=== PATIENT | male | born 1965 | race Native Hawaiian/Other Pacific Islander ===

== ENCOUNTER 2016-09-26 07:57 | Emergency (ER) | payer MEDICAID ==
[2016-09-26 08:04] VITALS: BP 151/89; PULSE 90; RESP 18; TEMP 97.9; O2SAT 94
--- NOTE | 2016-09-26 08:20 | EDPHY ---
H & P Stated Complaint: l lower back pain/l sciatic pain/sees pcp/is out of vicodin HPI/ROS: CHIEF COMPLAINT: "I have a herniated lumbar disc" HISTORY OF PRESENT ILLNESS: The patient is a 51 y/o male with chronic back pain complaining of the same back pain and requesting refills of his narcotic medication. He has a history of 2 herniated discs confirmed on MRI within the last year, per his report. He states he normally takes 7.5mg Vicodin and says he ran out 2 days ago. His doctor "told me he can only write a prescription every 30 days because it's a narcotic". He also takes Meloxicam daily. His pain is located primarily along his left lower back and extends into his hip, but does not radiate into his leg. His pain is usually worse at night. He denies weakness, paresthesias, urinary or bowel incontinence/retention. REVIEW OF SYSTEMS: A ten point review of systems was performed and is negative with the exception of the items mentioned in the HPI. - Personal History Current Tetanus/Diphtheria Vaccine: Yes Tetanus Vaccine Date: 2010 - Medical/Surgical History PMH: PMH: 1. Chronic back pain - 2 herniated discs 2. "mental issues" 3. Hepatitis C Hx Asthma: No Hx Chronic Respiratory Disease: No Hx Diabetes: No Hx Cardiac Disease: No Hx Renal Disease: No Hx Cirrhosis: No Hx Alcoholism: Yes Hx HIV/AIDS: No Hx Splenectomy or Spleen Trauma: No Other PMH: PMH- DEPRESSION, PTSD, SUICIDE ATTEMPTS X2, HEP C, antisocial personality d/o. PSH- NERVE DAMAGE LFA, hx staph infx, herniated disc, chronic pain, hx hand fx, hx cutting. back pain - Social History Smoking Status: Never smoked Additional Social History: Nonsmoker. . Denies alcohol or drug use. Unemployed. Followed by [facility] - Physical Exam Exam: General Appearance: Alert. Vital signs reviewed. Blood pressure 151/89. Eyes: Pupils equal and round, no conjunctival injection, no discharge. Anicteric. ENT, Mouth: Mucous membranes are moist, no oropharyngeal erythema or edema. Neck: No lymphadenopathy, supple. Respiratory: Lungs are clear to auscultation; no wheezes, rales, or rhonchi. Cardiovascular: Regular rate and rhythm; no murmur, rub, or gallop. Gastrointestinal: Abdomen is soft and nontender, no masses or organomegaly. Skin: Warm and dry, no rashes on exposed skin, normal color. Back: Nontender to palpation over the thoracolumbar spine. No CVAT. Extremities: No lower extremity edema, no calf tenderness or swelling. Neurological: Alert and oriented. Moving all four extremities easily and equally. Strength is 5 over 5 bilaterally in both legs with testing of all major motor groups. Sensation is intact to light touch over both lower extremities. Deep tendon reflexes are 1+ in the ankles and knees bilaterally. Gait is normal. . Psychiatric: Normal affect. Constitutional: Initial Vital Signs Temperature (C) 36.6 C 09/26/16 08:01 Heart Rate 90 09/26/16 08:01 Respiratory Rate 18 09/26/16 08:01 Blood Pressure 151/89 H 09/26/16 08:01 O2 Sat (%) 94 09/26/16 08:01 O2 Delivery Mode Room Air Allergies/Adverse Reactions: No Known Allergies Allergy (Verified 09/26/16 07:58) Home Medications: Medication Instructions Recorded Albuterol [Ventolin Hfa Inhaler] 2 puffs IH Q4 PRN #1 mdi 08/14/15 GABAPENTIN 1,200 mg PO TID #56 tablet 08/14/15 TRIHEXYPHENIDYL HCL 5 mg PO DAILY #7 08/14/15 TRIHEXYPHENIDYL HCL 10 mg PO HS #14 08/14/15 buPROPion SR [Wellbutrin 150mg SR 150 mg PO BID #14 tab 08/14/15 (*)] Vicodin 5-300 mg Tablet 09/26/16 Medical Decision Making ED Course/Re-evaluation: This is a 51 y/o male with chronic back pain and continuous narcotic use complaining of chronic back pain and requesting narcotic refills. His neuro exam is normal. I reviewed his history on the [facility]PD[facility]: 2 weeks ago his PA prescribed 120mg 7.5mg/325 hydrocodone/acetaminophen. He has also had a prescription for tramadol recently. I told him this and he became quite agitated and began yelling at me. I offered lidocaine injections/patch, which he refused. He asked where the next closest ER is so he could go there instead. I again offered lidocaine injection and recommended OTC lidocaine patches until he is able to see his PA. He continued to be agitated and yelled at me. He walked out of the ED without assistance without receiving discharge instructions. It is my impression that he is seeking opiates. I find no evidence of radiculopathy, do not suspect epidural infection or other sinister process that would cause back pain. Departure - Departure Disposition: Home, Routine, Self-Care Clinical Impression: Chronic back pain Qualifiers: Back pain location: low back pain Back pain laterality: left Sciatica presence : without sciatica Qualified Code(s): M54.5 - Low back pain; G89.29 - Other chronic pain Condition: Good Instructions: Lidocaine Patch (On the skin), Chronic Back Pain (ED) Additional Instructions: 1. Follow up with your primary care provider this week for pain management of your chronic pain. 2. Be aware the ED does not prescribe narcotics for chronic pain. 3. I recommend trying lidocaine patches available [id number] and applying to painful areas. Referrals: Asha Duke, PAC [Primary Care Provider] - As per Instructions Report Scribed for: Alethea Bishop Report Scribed by: Jes Madrigal Date of Report: 09/26/16 Time of Report: 08:40 Physician Review and Approval Statement: 09/26/16 08:20 Portions of this note were transcribed by the biomedical field service engineer. I, Dr. Alethea Bishop, personally performed the history, physical exam, and medical decision- making; and confirmed the accuracy of the information in the transcribed note.
== END 2016-09-26 09:03 | disposition home or self-care (01) ==
DX: M54.5 Low back pain (principal); G89.29 Other chronic pain

== ENCOUNTER 2017-06-30 19:03 | Emergency (ER) | payer MEDICAID ==
--- NOTE | 2017-06-30 19:23 | EDPHY ---
H & P Source: Patient - Personal History Tetanus Vaccine Date: 2010 - Medical/Surgical History Hx Asthma: No Hx Chronic Respiratory Disease: No Hx Diabetes: No Hx Cardiac Disease: No Hx Renal Disease: No Hx Cirrhosis: No Hx Alcoholism: Yes Hx HIV/AIDS: No Hx Splenectomy or Spleen Trauma: No Other PMH: PMH- DEPRESSION, PTSD, SUICIDE ATTEMPTS X2, HEP C, antisocial personality d/o. PSH- NERVE DAMAGE LFA, hx staph infx, herniated disc, chronic pain, hx hand fx, hx cutting. back pain - Social History Smoking Status: Never smoked Time Seen by Provider: 06/30/17 19:06 HPI/ROS: CHIEF COMPLAINT: M1 psychiatric hold HISTORY OF PRESENT ILLNESS: The patient is brought to the emergency department on M1 psychiatric hold for suicidal ideation, aggressive behavior and tangential thoughts. The patient reportedly has a history of schizophrenia and has been off of his medications. He also has a history of chronic pain and prior suicide attempt. The patient reports that he is not had his Neurontin, Percocet and he believes Zyprexa for the past several days. The patient reports she has been experiencing hallucinations. He has been having thoughts of suicide secondary to his chronic pain. REVIEW OF SYSTEMS: A comprehensive 10 point review of systems is otherwise negative aside from elements mentioned in the history of present illness. (Augie Peteresn) - Physical Exam Exam: General Appearance: Alert, no distress Eyes: Pupils equal and round no pallor or injection ENT, Mouth: Mucous membranes moist Respiratory: There are no retractions, lungs are clear to auscultation Cardiovascular: Regular rate and rhythm Gastrointestinal: Abdomen is soft and nontender, no masses, bowel sounds normal Neurological: A&O, normal motor function, normal sensory exam, normal cranial nerves Skin: Multiple tattoos, evidence of old prior self-inflicted lacerations Musculoskeletal: Neck is supple nontender Extremities: symmetrical, full range of motion Psychiatric: Agitated, endorses suicidal and homicidal ideation (Augie Petersen) Constitutional: Initial Vital Signs Temperature (C) 37 C 06/30/17 19:28 Heart Rate 119 H 06/30/17 19:28 Respiratory Rate 20 06/30/17 19:28 Blood Pressure 129/80 H 06/30/17 19:28 O2 Sat (%) 94 06/30/17 19:28 O2 Delivery Mode Room Air Allergies/Adverse Reactions: No Known Allergies Allergy (Verified 09/26/16 07:58) Home Medications: Medication Instructions Recorded Albuterol [Ventolin Hfa Inhaler] 2 puffs IH Q4 PRN #1 mdi 08/14/15 GABAPENTIN 1,200 mg PO TID #56 tablet 08/14/15 TRIHEXYPHENIDYL HCL 5 mg PO DAILY #7 08/14/15 TRIHEXYPHENIDYL HCL 10 mg PO HS #14 08/14/15 buPROPion SR [Wellbutrin 150mg SR 150 mg PO BID #14 tab 08/14/15 (*)] Vicodin 5-300 mg Tablet 09/26/16 Medical Decision Making ED Course/Re-evaluation: The patient presents the ED on an M1 psychiatric hold. The patient was given Zyprexa. He has been medically cleared in the emergency department. The patient will be turned over to Dr. Hester at 11pm pending psychiatric disposition. (Augie Petersen) 5:50 a.m.- The patient has been stable during my shift. He did require a dose of Ativan and Zyprexa because of agitation which resolved. Urine toxicology was positive for methamphetamines which delays his psychiatric evaluation. I anticipate at 7 :00 a.m. The case will be signed out to the oncoming provider Dr. Matute. (Nuha Hester) 1500: Patient is signed out to me at change of shift by Dr. Matute. Patient is awaiting evaluation by Psychiatric Services. Psychiatric Services evaluated the patient. They felt he was at his baseline. He does have a loosen a shins at baseline. The patient's white came in the emergency department. She visit with the patient. She feels comfortable taking him home. She feels he is at his baseline as well. Patient was given warnings. Dr. Salazar is aware. (Evelyn Yang) Differential Diagnosis: Differential diagnosis considered includes schizophrenia, psychosis, substance abuse (Augie Petersen) Other Provider: Care assumed at 7:00 a.m., schizophrenia and methamphetamine, pending psychiatric evaluation. Usual medications prescribed at 1330: Wellbutrin 150mg bid, neurontin 1200mg po tid, percocet 2 tabs po bid, zyprexa 10mg po daily. Patient having psychiatric evaluation. Signed out to Dr. Sovndal at 1500. (Wilfredo Matute) - Data Points Laboratory Results: Laboratory Results 06/30/17 20:02 06/30/17 20:02 Medications Given: Gabapentin (Neurontin) 1,200 mg PO TID ABHINAV Stop: 12/28/17 15:59 Last Admin: 07/01/17 13:46 Dose: 1,200 mg Discontinued Medications Bupropion HCl (Wellbutrin Sr) 150 mg PO EDNOW ONE Stop: 06/30/17 20:13 Last Admin: 06/30/17 21:18 Dose: 150 mg Bupropion HCl (Wellbutrin) 150 mg PO EDNOW ONE Stop: 07/01/17 13:48 Last Admin: 07/01/17 13:55 Dose: 150 mg Gabapentin (Neurontin) 300 mg PO EDNOW ONE Stop: 06/30/17 19:29 Last Admin: 06/30/17 20:00 Dose: 300 mg Lorazepam (Ativan) 1 mg PO EDNOW ONE Stop: 06/30/17 23:40 Last Admin: 06/30/17 23:39 Dose: 1 mg Olanzapine (Zyprexa Zydis) 10 mg PO EDNOW ONE Stop: 06/30/17 19:28 Last Admin: 06/30/17 20:00 Dose: 10 mg Olanzapine (Olanzapine) 10 mg PO DAILY ONE Stop: 07/01/17 13:33 Last Admin: 07/01/17 13:44 Dose: 10 mg Oxycodone/Acetaminophen (Percocet 5/325) 2 tab PO EDNOW ONE Stop: 06/30/17 19:29 Last Admin: 06/30/17 20:00 Dose: 2 tab Oxycodone/Acetaminophen (Percocet 5/325) 2 tab PO BID ONE Stop: 07/01/17 13:33 Last Admin: 07/01/17 13:46 Dose: 2 tab Departure - Departure Disposition: Home, Routine, Self-Care Clinical Impression: Methamphetamine use Schizophrenia Qualifiers: Schizophrenia type: unspecified Qualified Code(s): F20.9 - Schizophrenia, unspecified Condition: Good Instructions: Schizophrenia (ED), Methamphetamine Abuse (ED) Additional Instructions: Return with worsening symptoms or any other concerns. Referrals: [facility],. [Clinic] - 1-2 days without fail
[2017-06-30] MEDS ORDERED: OLANZapine DISINTEGR 10 MG TAB PO ONE (19:27)
[2017-06-30] MEDS ORDERED: OXYCODONE/APAP 5/325 TAB PO ONE (19:28)
[2017-06-30] MEDS ORDERED: GABAPENTIN 300 MG CAP PO ONE (19:28)
[2017-06-30] MEDS ORDERED: buPROPion SR 150 MG TAB PO ONE (20:12)
[2017-06-30 20:13] LABS: PLATELET COUNT 263 10^3/uL (150-400)
[2017-06-30 22:57] VITALS: O2SAT 96
[2017-06-30] MEDS ORDERED: OLANZapine DISINTEGR 10 MG TAB ONE ×2 (23:21→23:30)
[2017-06-30] MEDS ORDERED: LORazepam 1 MG TAB ONE ×2 (23:21→23:30)
[2017-06-30] MEDS ORDERED: HALOPERIDOL LACT 5 MG/ML INJ ONE (23:29)
[2017-06-30] MEDS ORDERED: LORazepam 1 MG TAB PO ONE (23:39)
[2017-07-01 07:50] VITALS: TEMP 97.7
[2017-07-01] MEDS ORDERED: OXYCODONE/APAP 5/325 TAB PO ONE (13:32)
[2017-07-01] MEDS ORDERED: OLANZapine 5 MG TAB PO ONE (13:32)
[2017-07-01] MEDS ORDERED: GABAPENTIN 300 MG CAP ONE (13:42)
[2017-07-01] MEDS ORDERED: buPROPion 100 MG TAB PO ONE (13:47)
[2017-07-01] MEDS ORDERED: GABAPENTIN 300 MG CAP PO SCH (16:00)
[2017-07-01 17:16] VITALS: BP 112/67; PULSE 89; RESP 18
[2017-07-01] MEDS ORDERED: buPROPion SR 150 MG TAB PO SCH (21:00)
== END 2017-07-01 19:43 | disposition home or self-care (01) ==
LOC: EDUNIT#
DX: F20.9 Schizophrenia, unspecified (principal); F15.90 Other stimulant use, unspecified, uncomplicated
CPT/HCPCS: 80305; G0480; J1630

== ENCOUNTER 2017-07-19 19:09 | Inpatient (IN) | payer MEDICAID ==
[2017-07-19 20:34] LABS: PLATELET COUNT 248 10^3/uL (150-400)
[2017-07-19] MEDS ORDERED: OLANZapine DISINTEGR 10 MG TAB PO ONE ×2 (21:55→23:26)
[2017-07-19] MEDS ORDERED: buPROPion SR 150 MG TAB PO ONE (22:01)
[2017-07-19] MEDS ORDERED: OXYCODONE/APAP 5/325 TAB PO ONE (22:03)
--- NOTE | 2017-07-19 22:27 | EDPHY ---
H & P Smoking Status: Never smoked Time Seen by Provider: 07/19/17 20:15 HPI/ROS: CHIEF COMPLAINT: Suicidal, homicidal HISTORY OF PRESENT ILLNESS: 51-year-old male with a known history of paranoid schizophrenia presents to the emergency department voluntarily with his feeling suicidal and homicidal. The patient is noncompliant with his Zyprexa. The patient tells me that he will not disclose his suicidal plan. He has had previous suicidal attempts with cutting that has required surgical repair. He admits to using Adderall recreationally. His last use was today. He also admits to smoking marijuana. He denies alcohol. Currently he is complaining of his back pain. He has a history of chronic back pain. He also has a history of recent rotator cuff repair January of 2017. He is requesting Percocet. He states he also has not taken his Wellbutrin today. He denies pain in his chest or difficulty breathing. Denies abdominal pain. Denies headache. REVIEW OF SYSTEMS: Constitutional: No fever, no chills. Eyes: No double or blurry vision. ENT: No sore throat. Respiratory: No cough, no shortness of breath. Cardiac: No chest pain. Gastrointestinal: No abdominal pain, vomiting or diarrhea. Genitourinary: No dysuria. Musculoskeletal: No neck or back pain. Skin: No rashes. Neurological: No headache. (Zaida Cooper) Past Medical/Surgical History: Previous suicide attempts, paranoid schizophrenia, substance abuse, chronic pain (Zaida Cooper) Social History: (Zaida Cooper) Physical Exam: General Appearance: Alert, no distress. Anxious Eyes: Pupils equal and round. Extraocular motions are all intact. ENT: Mouth: Mucous membranes moist. Respiratory: No wheezing, rhonchi, or rales, lungs are clear to auscultation. Cardiovascular: Regular rate and rhythm. Gastrointestinal: Abdomen is soft and nontender, no masses, no rebound or guarding, bowel sounds normal. Neurological: Alert and oriented x 3, cranial nerves II through XII grossly intact Skin: Warm and dry, no rashes. Musculoskeletal: Nontender to palpate along the cervical, thoracic or lumbar spine. Neck is supple. Extremities: Full range of motion and no peripheral edema. Psychiatric: Patient is oriented X 3, there is no agitation. (Zaida Cooper) Constitutional: Initial Vital Signs Temperature (C) 36.6 C 07/19/17 19:50 Heart Rate 125 H 07/19/17 19:50 Respiratory Rate 18 07/19/17 19:50 Blood Pressure 126/99 H 07/19/17 19:50 O2 Sat (%) 94 07/19/17 19:50 O2 Delivery Mode Room Air Allergies/Adverse Reactions: No Known Allergies Allergy (Verified 07/19/17 19:42) Home Medications: Medication Instructions Recorded Albuterol [Ventolin Hfa Inhaler] 2 puffs IH Q4 PRN #1 mdi 08/14/15 Gabapentin [Neurontin 400 MG (*)] 1,200 mg PO TID 07/19/17 Meloxicam 7.5 mg PO BID 07/19/17 OLANZapine [Zyprexa] 10 mg PO HS 07/21/17 buPROPion XL [Wellbutrin Xl] 150 mg PO BID 07/21/17 oxyCODONE HCL/ACETAMINOPHEN 1 - 2 each PO Q6HRS PRN 07/21/17 [Percocet 7.5-325 mg Tablet] Medical Decision Making ED Course/Re-evaluation: 51-year-old male presents to the emergency department voluntarily feeling suicidal and homicidal. He is noncompliant with his medications including Zyprexa. The patient admits that he needs help. He is requesting his medications. He was placed on an M1 hold. The patient admits to using methamphetamines. The urine tox screen was positive for amphetamines. He will be evaluated after 12 hr because of the amphetamines in his system. The patient became increasingly agitated. He was given a total of 20 mg of Zyprexa orally. He was also given his Wellbutrin SR and his Percocet that he takes for chronic pain. The patient declined Haldol. He says that he does not like how it makes him feel the following day. (Zaida Cooper) 0539: Patient resting. No acute events overnight. 0700: Patient signed over to Dr. Gutierrez. Patient still needs eval due to positive for amphetamine. (Andrews Kirby) I assumed care of this patient at 3:00 p.m., change of shift, from Xander Gutierrez. We are awaiting placement. Throughout the course of my shift, the patient remained calm cooperative. He did request his usual medications and was provided with Wellbutrin, Effexor, Zyprexa, gabapentin. Patient has been declined for admission to [address] [place] [address] secondary to a history of aggressive behavior. He is currently being reviewed for placement at [facility]. Patient's care will be assumed by Dr. Antoni Rico, at 11:00 p.m., change of shift. (Angela Dailey) 11:00 a.m. The patient has been evaluated by Mental Health. They would like to admit him for schizophrenia possibly to [address] [place] [address]. 3:00 p.m. Care transferred to Dr. Angela Dailey (Xander Gutierrez) Differential Diagnosis: Depression including noncompliant with medication, functional and major depression, situational depression, medication side effect, drugs and alcohol abuse. (Zaida Cooper) Other Provider: 2300 care assumed by me from Dr. Dailey pending placement. 07/21/17 [address] Faustin pending placement. No issues during my care of this patient overnight. (Daquan Rico) 7:00 a.m.-I assumed care of this patient at shift change. He has a history of schizoaffective disorder and presents with suicidal and homicidal ideation. He has been seen by mental health and is awaiting inpatient disposition. Accepted to . [facility] completed. (Shona Faustin) Care Turn Over: Care will be turned over to Dr. Andrews Kirby (Zaida Cooper) - Data Points Laboratory Results: Laboratory Results 07/19/17 19:50 07/19/17 19:50 Medications Given: Discontinued Medications Amlodipine Besylate (Norvasc) 5 mg PO EDNOW ONE Stop: 07/21/17 10:29 Last Admin: 07/21/17 11:52 Dose: Not Given Bupropion HCl (Wellbutrin Sr) 150 mg PO EDNOW ONE Stop: 07/19/17 22:02 Last Admin: 07/19/17 22:25 Dose: 150 mg Bupropion HCl (Wellbutrin) 150 mg PO EDNOW ONE Stop: 07/20/17 12:23 Last Admin: 07/20/17 12:31 Dose: Not Given Bupropion HCl (Wellbutrin Sr) 150 mg PO EDNOW ONE Stop: 07/20/17 18:46 Last Admin: 07/20/17 19:12 Dose: 150 mg Bupropion HCl (Wellbutrin Sr) 150 mg PO EDNOW ONE Stop: 07/21/17 08:48 Last Admin: 07/21/17 09:07 Dose: 150 mg Gabapentin (Neurontin) 300 mg PO EDNOW ONE Stop: 07/20/17 12:23 Last Admin: 07/20/17 12:31 Dose: Not Given Gabapentin (Neurontin) 300 mg PO EDNOW ONE Stop: 07/20/17 16:46 Last Admin: 07/20/17 16:49 Dose: 300 mg Gabapentin (Neurontin) 300 mg PO EDNOW ONE Stop: 07/20/17 21:19 Last Admin: 07/20/17 21:37 Dose: 300 mg Gabapentin (Neurontin) 300 mg PO EDNOW ONE Stop: 07/21/17 08:48 Last Admin: 07/21/17 09:08 Dose: 300 mg Haloperidol Lactate (Haldol Injection) 10 mg IM EDNOW ONE Stop: 07/19/17 23:12 Last Admin: 07/19/17 23:35 Dose: Not Given Olanzapine (Zyprexa Zydis) 10 mg PO EDNOW ONE Stop: 07/19/17 21:56 Last Admin: 07/19/17 22:10 Dose: 10 mg Olanzapine (Zyprexa Zydis) 10 mg PO EDNOW ONE Stop: 07/19/17 23:27 Last Admin: 07/19/17 23:34 Dose: 10 mg Olanzapine (Zyprexa Zydis) 10 mg PO EDNOW ONE Stop: 07/20/17 11:16 Last Admin: 07/20/17 12:22 Dose: Not Given Olanzapine (Zyprexa Zydis) 10 mg PO EDNOW ONE Stop: 07/20/17 21:18 Last Admin: 07/20/17 21:37 Dose: 10 mg Oxycodone/Acetaminophen (Percocet 5/325) 2 tab PO EDNOW ONE Stop: 07/19/17 22:04 Last Admin: 07/19/17 22:10 Dose: 2 tab Oxycodone/Acetaminophen (Percocet 5/325) 2 tab PO EDNOW ONE Stop: 07/20/17 21:19 Last Admin: 07/20/17 21:37 Dose: 2 tab Oxycodone/Acetaminophen (Percocet 5/325) 2 tab PO EDNOW ONE Stop: 07/21/17 08:47 Last Admin: 07/21/17 09:08 Dose: 2 tab Departure - Departure Disposition: [facility] IP Clinical Impression: Suicidal ideation Schizophrenia Qualifiers: Schizophrenia type: unspecified Qualified Code(s): F20.9 - Schizophrenia, unspecified
[2017-07-19] MEDS ORDERED: HALOPERIDOL LACT 5 MG/ML INJ IM ONE (23:11)
[2017-07-20] MEDS ORDERED: OLANZapine DISINTEGR 10 MG TAB PO ONE ×2 (11:15→21:17)
[2017-07-20] MEDS ORDERED: buPROPion 100 MG TAB PO ONE (12:22)
[2017-07-20] MEDS ORDERED: GABAPENTIN 300 MG CAP PO ONE ×3 (12:22→21:18)
[2017-07-20] MEDS ORDERED: GABAPENTIN 300 MG CAP ONE (12:23)
[2017-07-20] MEDS ORDERED: buPROPion SR 150 MG TAB PO ONE (18:45)
[2017-07-20] MEDS ORDERED: OXYCODONE/APAP 5/325 TAB PO ONE (21:18)
[2017-07-20] MEDS ORDERED: buPROPion 100 MG TAB PO SCH (22:00)
[2017-07-21] MEDS ORDERED: OXYCODONE/APAP 5/325 TAB PO ONE (08:46)
[2017-07-21] MEDS ORDERED: buPROPion SR 150 MG TAB PO ONE (08:47)
[2017-07-21] MEDS ORDERED: GABAPENTIN 300 MG CAP PO ONE (08:47)
[2017-07-21] MEDS ORDERED: amLODIPine BESYLATE 5 MG TAB PO ONE (10:28)
[2017-07-21] MEDS ORDERED: ALBUTEROL 60 PUFFS/8 GM MDI IH PRN (14:55)
[2017-07-21] MEDS ORDERED: MAGNESIUM HYDROXIDE 30 ML UDCUP PO PRN (14:58)
[2017-07-21] MEDS ORDERED: OLANZapine DISINTEGR 10 MG TAB PO PRN (14:58)
[2017-07-21] MEDS ORDERED: ACETAMINOPHEN 325 MG TAB PO PRN (14:58)
[2017-07-21] MEDS ORDERED: MAG HYDROX/AL HYDROX/SIMETH 30 ML UDCUP PO PRN (14:58)
[2017-07-21] MEDS ORDERED: buPROPion XL 150 MG TAB PO ONE (15:00)
[2017-07-21] MEDS: GABAPENTIN 400 MG CAP PO SCH ×2 (15:50→20:47)
[2017-07-21] MEDS: OXYCODONE/APAP 5/325 TAB PO PRN (15:53)
[2017-07-21] MEDS: NICOTINE POLACRILEX 2 MG GUM B PRN ×2 (15:55→21:00)
--- NOTE | 2017-07-21 15:55 | BCON ---
[f rep st] BEHAVIORAL HEALTH CONSULTATION INTERNAL MEDICINE CONSULT DATE OF CONSULTATION: 07/21/2017 REFERRING PHYSICIAN: Alejo Lubin MD REASON FOR REFERRAL: Medical clearance for inpatient behavioral health stay. HISTORY OF PRESENT ILLNESS: This patient came to the emergency department voluntarily with his feeling suicidal and homicidal. He has a history of paranoid schizophrenia and had been noncompliant with Zyprexa. He was evaluated by the mental health team and admitted for further psychiatric care. He currently complains of mouth pain over his right maxillary canine tooth. He otherwise is without any acute complaints, but he wants to be sure that he has been prescribed nicotine gum as well as Percocet. PAST MEDICAL HISTORY: 1. Chronic pain. 2. Schizophrenia. 3. Polysubstance abuse. 4. Laceration of the left arm. PAST SURGICAL HISTORY: He has had surgical repair of a laceration and he has had a rotator cuff surgery. MEDICATIONS: Prior to admission 1. Oxycodone/acetaminophen 1-2 p.o. q.6 hours p.r.n. 2. Meloxicam 7.5 mg p.o. b.i.d. 3. Gabapentin 1200 mg p.o. t.i.d. 4. Albuterol 2 puffs q.4 hours p.r.n. 5. Bupropion XL 150 mg p.o. b.i.d. 6. Olanzapine 10 mg p.o. q.h.s. SOCIAL HISTORY: He is . He lives with his . He is unemployed. He is a tobacco smoker. His urine drug screen was positive for amphetamines and he admitted in the Emergency Department to using methamphetamine. FAMILY HISTORY: Noncontributory. REVIEW OF SYSTEMS: Other than mouth pain a 10-point review of systems was conducted and was negative. PHYSICAL EXAMINATION: VITALS: Blood pressure is 110/79, heart rate is 90, respiratory rate is 14, oxygen saturation is 94% on room air. Temperature is 37.1 degrees centigrade. His weight is 81.6 kg for a body mass index of 28.2. GENERAL: This is a well-nourished, well-developed man with multiple tattoos, napping in bed, easily awakened, dressed in hospital scrubs, cooperative and in no acute distress. HEENT: Extraocular movements are intact. Pupils are equal , round, reactive to light. Mucous membranes are moist. There is a 2 mm papule on the buccal gum above the right maxillary canine which is tender to palpation. He also reports tenderness over the maxillary sinus. Otherwise, mucous membranes are moist and dentition is in good condition. He has an uncrowded airway, Mallampati class 2. NECK: Supple. HEART: Regular rate and rhythm with no murmurs, rubs, or gallops. LUNGS: Clear to auscultation bilaterally. ABDOMEN: Benign. EXTREMITIES: There is no cyanosis, clubbing, or edema. NEUROLOGIC: He is alert and oriented x3. Cranial nerves 2-12 are grossly intact. There is no focal weakness and sensation is intact to light touch. LABORATORY STUDIES: From the emergency department CBC was overall within normal limits. He had a slight increase of absolute neutrophils at 6.53. Serum chemistry revealed normal renal function and electrolytes. His glucose was slightly elevated at 113, but this was likely not fasting. Toxicology screen in the urine was non-negative for amphetamines and marijuana. Toxicology screen in the serum was negative for ethyl alcohol. ASSESSMENT AND RECOMMENDATIONS: 1. Mental health issues pending further evaluation and management per Psychiatry and the mental health team. 2. Mouth pain with erythematous papule in the buccal gum above the right canine. Unclear whether this is odontogenic. However, next step in evaluation would be for him to see a dentist after discharge from inpatient psychiatry. If it were to worsen, or if he were to develop fevers or chills, would consider treatment with antibiotics. However, he did not have an elevated white count on the labs that were drawn 2 days ago. 3. Chronic pain syndrome. In reviewing his medications, I see that Percocet as well as oxycodone have been continued. He also has acetaminophen prescribed and gabapentin. 4. Tobacco dependence syndrome. I encouraged smoking cessation. 5. Polysubstance abuse with a positive urine screen for amphetamines as well as marijuana. He might benefit from specific substance abuse counseling. 6. History of asthma. Continue albuterol on a p.r.n. basis. I see no medical contraindications to this patient's continued stay on the inpatient behavioral health unit or to any psychiatric medications or procedures. Thank you very much for including me in the care of this patient and please do not hesitate to contact me or the hospitalist service should there be need for further medical evaluation. /[id number]
[2017-07-21] MEDS: OLANZapine 10 MG TAB PO SCH (20:47)
[2017-07-21] MEDS: LORazepam 0.5 MG TAB PO PRN (23:45)
[2017-07-22] MEDS: oxyCODONE IR 5 MG TAB PO PRN ×3 (08:01→21:14)
[2017-07-22] MEDS: OXYCODONE/APAP 5/325 TAB PO PRN ×3 (08:02→21:15)
[2017-07-22] MEDS: GABAPENTIN 400 MG CAP PO SCH ×3 (08:04→17:02)
[2017-07-22] MEDS ORDERED: buPROPion XL 150 MG TAB PO SCH (09:00)
[2017-07-22] MEDS: NICOTINE POLACRILEX 2 MG GUM B PRN ×6 (11:04→22:56)
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
[2017-07-22] MEDS: PRAZOSIN HCL 1 MG CAP PO SCH (21:14)
[2017-07-22] MEDS: OLANZapine 10 MG TAB PO SCH (21:14)
[2017-07-22] MEDS: buPROPion XL 150 MG TAB PO SCH (21:14)
[2017-07-23] MEDS: GABAPENTIN 400 MG CAP PO SCH ×3 (07:30→17:19)
[2017-07-23] MEDS: NICOTINE POLACRILEX 2 MG GUM B PRN ×6 (07:30→23:07)
[2017-07-23] MEDS: OXYCODONE/APAP 5/325 TAB PO PRN ×3 (07:30→23:02)
[2017-07-23] MEDS: oxyCODONE IR 5 MG TAB PO PRN ×3 (07:31→23:03)
[2017-07-23] MEDS: buPROPion XL 150 MG TAB PO SCH ×3 (07:31→16:10)
[2017-07-23] MEDS ORDERED: buPROPion SR 150 MG TAB PO SCH (10:45)
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
[2017-07-23] MEDS: PRAZOSIN HCL 1 MG CAP PO SCH (21:17)
[2017-07-23] MEDS: OLANZapine 10 MG TAB PO SCH (21:18)
[2017-07-23] MEDS: LORazepam 0.5 MG TAB PO PRN (23:06)
[2017-07-24 06:52] VITALS: BP 98/67
[2017-07-24] MEDS ORDERED: OLANZapine DISINTEGR 5 MG TAB PO PRN (07:02)
[2017-07-24] MEDS: GABAPENTIN 400 MG CAP PO SCH ×2 (08:19→12:32)
[2017-07-24] MEDS: buPROPion XL 150 MG TAB PO SCH (08:19)
[2017-07-24] MEDS: OXYCODONE/APAP 5/325 TAB PO PRN (08:20)
[2017-07-24] MEDS: oxyCODONE IR 5 MG TAB PO PRN (08:20)
[2017-07-24] MEDS: NICOTINE POLACRILEX 2 MG GUM B PRN ×2 (08:21→12:32)
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
== END 2017-07-24 14:01 | disposition home or self-care (01) | DRG 885 ==
LOC: BBEH 07-21 12:57
PROVIDERS: ADMIT Psychiatry & Neurology Psychiatry; ATTEND Psychiatry & Neurology Psychiatry
DX: F25.1 Schizoaffective disorder, depressive type (principal); F43.12 Post-traumatic stress disorder, chronic; F12.188 Cannabis abuse with other cannabis-induced disorder; F15.14 Other stimulant abuse with stimulant-induced mood disorder; G89.4 Chronic pain syndrome; Z79.891 Long term (current) use of opiate analgesic; K06.9 Disorder of gingiva and edentulous alveolar ridge, unspecified; J45.909 Unspecified asthma, uncomplicated; F17.210 Nicotine dependence, cigarettes, uncomplicated; Z63.0 Problems in relationship with spouse or partner; Z65.3 Problems related to other legal circumstances
CPT/HCPCS: 80305; G0480; J1630

== ENCOUNTER 2017-10-26 09:35 | Inpatient (IN) | payer MEDICAID, OTHER ==
[2017-10-26] MEDS ORDERED: OLANZapine DISINTEGR 10 MG TAB ONE (09:36)
[2017-10-26] MEDS ORDERED: OLANZapine DISINTEGR 5 MG TAB PO ONE (09:37)
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
[2017-10-26 10:01] LABS: PLATELET COUNT 238 10^3/uL (150-400)
[2017-10-26] MEDS ORDERED: HALOPERIDOL 5 MG TAB PO ONE (10:32)
--- NOTE | 2017-10-26 14:54 | ASMTTCLDSP ---
TLC Discharge Disposition Disposition: Answers: Admit Disposition Notes: Notes: Admit 3N Discharge Concerns/Recommendations: Notes: In consultation with [facility] ED physician, Xander Gutierrez MD and on-call ANP, Kyle Moore, both concurred that pt appears to meet 27-65 criteria requiring psychiatric hospitalization as pt appears to be at risk of harm to self/others/gravely disabled due to a mental illness condition. Pt was given (but declined to sign) the 3N prohibited belongings list while in the ED. Was patient given the Answers: Yes Inpatient Behavioral Health Prohibited Belongings List while in the ED? For inpatient [facility] admission, the following psychiatrist agreed to accept patient for admission to Behavioral Health ([facility]): Type of Hold: Answers: M1/72-hour Hold Hold initiated by: Answers: Police Date Signed: 10/26/2017 02:18 PM Electronically Signed By:Tc Perez
[2017-10-26] MEDS ORDERED: LORazepam 0.5 MG TAB PO PRN ×2 (15:47→15:53)
[2017-10-26] MEDS ORDERED: OLANZapine DISINTEGR 10 MG TAB PO PRN (15:47)
[2017-10-26] MEDS ORDERED: ACETAMINOPHEN 325 MG TAB PO PRN (15:47)
[2017-10-26] MEDS ORDERED: MAG HYDROX/AL HYDROX/SIMETH 30 ML UDCUP PO PRN (15:47)
[2017-10-26] MEDS ORDERED: MAGNESIUM HYDROXIDE 30 ML UDCUP PO PRN (15:47)
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
[2017-10-27] MEDS ORDERED: ALBUTEROL 60 PUFFS/8 GM MDI IH PRN (12:17)
[2017-10-27] MEDS ORDERED: OLANZapine DISINTEGR 10 MG TAB PO PRN (12:19)
--- NOTE | 2017-10-27 13:11 | ASMTLCPROG ---
Notes Note: Notes: TLC Evaluation Report had been saved/locked in [place] but did not migrate over to [facility]. IT ticket Incident [id number] requested. Date Signed: 10/27/2017 01:10 PM Electronically Signed By:Tc Perez
[2017-10-27] MEDS: NICOTINE POLACRILEX 2 MG GUM B PRN ×3 (13:12→19:28)
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
[2017-10-27] MEDS: GABAPENTIN 400 MG CAP PO SCH ×2 (13:27→16:14)
[2017-10-27] MEDS: OXYCODONE/APAP 5/325 TAB PO PRN ×2 (13:28→19:29)
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
[2017-10-27] MEDS: buPROPion XL 150 MG TAB PO SCH (16:14)
[2017-10-27] MEDS: OLANZapine 10 MG TAB PO SCH (20:37)
[2017-10-28] MEDS: buPROPion XL 150 MG TAB PO SCH (08:35)
[2017-10-28] MEDS: GABAPENTIN 400 MG CAP PO SCH ×3 (08:35→17:25)
[2017-10-28] MEDS: OXYCODONE/APAP 5/325 TAB PO PRN ×2 (08:42→17:25)
[2017-10-28] MEDS: NICOTINE POLACRILEX 2 MG GUM B PRN ×2 (08:43→11:48)
[2017-10-28] MEDS: buPROPion SR 150 MG TAB PO SCH (13:17)
--- NOTE | 2017-10-28 13:23 | ASMTCMCOM ---
CM Note CM Note Notes: After discussing case with hospital liaison (Gretta); CC sent over referral to [facility]. Date Signed: 10/28/2017 01:22 PM Electronically Signed By:Saúl Sabillon
--- NOTE | 2017-10-28 16:37 | SOAPPROG ---
ENMA Progress Note Assessment/Plan: Assessment: Plan: 10/28/17 16:36 Schizophrenia: Looks much better today. Requests transfer to [place]. Await information from [facility]. CCM. Subjective: Pt seen, discussed with staff. Reports feeling "a lot better." States he needs "buttermaker continuous churn hospitalization." He requests transfer to [facility] "to work on my voices and addictions." I passed this along to CC. O/w reports improvement in intensity of AH's. Objective: Vital Signs Temp Pulse Resp BP Pulse Ox 36.4 C 73 20 102/62 90 L 10/28/17 06:00 10/28/17 06:00 10/28/17 06:00 10/28/17 06:00 10/28/17 06:00 MSE: Calm, coop. Affect is brighter, less irritable. Mood is "pretty good." TP linear. TC reveals ongoing report of AH's. States, "I guess I'm still suicidal. I need help." - Time Spent With Patient Time Spent With Patient: 25" ICD10 Worksheet Patient Problems: Problems Problem Status Onset Schizoaffective psychosis Acute Acute psychosis Acute Chronic back pain Acute History of posttraumatic stress disorder (PTSD) Acute Laceration of arm Acute Psychosis Acute Schizophrenia Acute Suicidal ideation Acute
[2017-10-28] MEDS: OLANZapine 10 MG TAB PO SCH (21:04)
[2017-10-29 06:54] VITALS: BP 100/58
[2017-10-29] MEDS: GABAPENTIN 400 MG CAP PO SCH ×3 (08:31→15:59)
[2017-10-29] MEDS: OXYCODONE/APAP 5/325 TAB PO PRN ×2 (08:32→15:59)
[2017-10-29] MEDS: buPROPion SR 150 MG TAB PO SCH ×2 (08:33→12:53)
--- NOTE | 2017-10-29 11:41 | ASMTBHDC ---
Notes Note: Notes: CC called and spoke with Jo Ann; she requested discharge paperwork including updates on medications and a prescription for medications upon discharge to facility. We discussed possible discharge date middle of next week 11/03/2017. [facility] to provide transportation upon discharge. Jo Ann [address] [address] O# [phone] F# [phone] Date Signed: 10/29/2017 11:39 AM Electronically Signed By:Sadaf Lerma
--- NOTE | 2017-10-29 11:56 | SOAPPROG ---
SOAP Progress Note Assessment/Plan: Assessment: Plan: 10/28/17 16:36 Schizophrenia: Looks much better today. Requests transfer to [place]. Await information from [facility]. CCM. 10/29/17 11:55 Schizophrenia: Continued improvement. CCM. Subjective: Pt seen, discussed with staff. Reports feeling "better." SLept better. AH's have decreased. Compliant with meds. States now that he wants to have a meeting with his . [place] reportedly refused him pending and "administrative review." Pt is aware of this and continues to request admission to that facility. Agreeable to remain in hospital on a voluntary basis at this time. Objective: Vital Signs Temp Pulse Resp BP Pulse Ox 36.3 C 84 16 100/58 L 91 L 10/29/17 06:00 10/29/17 06:00 10/29/17 06:00 10/29/17 06:00 10/29/17 06:00 15" - Time Spent With Patient Time Spent With Patient: 15" ICD10 Worksheet Patient Problems: Problems Problem Status Onset Schizoaffective psychosis Acute Acute psychosis Acute Chronic back pain Acute History of posttraumatic stress disorder (PTSD) Acute Laceration of arm Acute Psychosis Acute Schizophrenia Acute Suicidal ideation Acute
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
--- NOTE | 2017-11-08 10:06 | ASMTTLCEVL ---
TLC Evaluation - Basic Information Evaluation Start Date and 10/26/2017 12:30 PM Time Hospital Status Answers: M1 Hold 72-hr M1 Hold Start Date 10/26/2017 08:24 AM and Time Patient statement Notes: "I've been hearing voices and my mind is racing." Narrative Notes: Pt is a 52 yo, unemployed, male with history of schizophrenia and substance abuse, brought to [facility] ED by [employer] on M1 hold which noted: Responding officer responded to report of respondent being barricaded in room and yelling. Upon contact, respondent continually spoke about people outside on 4th floor ledge (none seen). Respondent was also talking to non-existent person he thought was in his room with him. He did barricade door to feel safe. He stated he is diagnosed paranoid schizophrenic. For his health and well-being he was taken to hospital. Police were called at the hotel as pt was acting erratically, pacing around, and scaring patrons. He was hostile, threatening and being uncooperative. He reported that he has been hearing voices and that his mind is racing. He also reported he feels depressed. He has not been taking his Zyprexa and Neurontin as prescribed. He does report that he has taken his Wellbutrin. He denied any recent recreational drug use. He does take Percocet and that his urinal B positive for opiates for chronic pain. Pt was administered Zyprexa Zydis 10 mg po at 0940 and Haldol 5 mg PO at 1054. Lab results were WNL. Pt was evaluated by [facility] server service assistant on 07/20/17 and is an open client at [facility] under the psychiatric care of Dr. Inocencio Galan. Pt was admitted to [facility] on 07/21/17 for suicidal and homicidal ideation and was discharged on 07/26/17. At that time, pt stated that he had been for two years and that his left him on 07/19/17 and wanted a divorce because of his Adderall abuse. Diagnosis History Notes: Pt has a long history of care with [facility]. He has had numerous incarcerations and history of aggression and violence, especially when acutely psychotic and/or intoxicated. His discharge diagnosis when most recently on was Schizoaffective Disorder, Depressed, Chronic, with Acute Exacerbation; PTSD; Cannabis Use Disorder, Severe; Amphetamine Use Disorder, Severe. Prior suicide attempts Notes: Pt has a history of serious suicide attempt by cutting in 2012. He reported 3 serious attempts in the past. Prior hospitalizations Notes: Pt has a history of inpatient hospitalizations, including [facility] five times. He was hospitalized at [facility] on 07/11/2017 and left AMA. He was admitted to [facility] 3N from 07/21/17 to 07/26/17 and from 08/13/15 to 08/14/15. Treatment Responses Notes: Pt has history of medication non-compliance. History of violence Notes: Pt's most recent incarceration for 25 months for domestic violence. Therapist: None. Psychiatrist: Dr. Galan at [facility] and has [facility] Medicaid [id number]. Medications (name, dosage, route, freq uency) Notes: Current home medications: Percocet 5/325 1 2 tab PO Q6H prn; Wellbutrin 150 mg PO BID at 0900, 1600; Minipress 1 mg PO HS; Olanzapine 10 mg PO HS; Meloxicam 7.5 mg PO BID; Neurontin 1200 mg PO TIC at 0900, 1300, 1800; Albuterol Inhaler HFA 2 puffs IH Q4 PRN. Allergies/Reaction Notes: NKDA. Sleep Notes: Pt reported that his sleep is fine but later stated that he can't typically sleep because he is "seeing things." Appetite Notes: Pt reported that his appetite is fine. Medical/Surgical history Notes: Pt has a reported history of chronic pain and significant for lumbar diskectomy, multiple left shoulder surgeries with chronic pain. Substance use history (frequency, intensity, his tory, duration) Notes: Pt admitted that he had been abusing Adderall prior to 07/21/17. He had been taking it daily and was not sure of the dose. Pt admitted to using marijuana and denied using alcohol and meth. BAL was zero. UDS was negative for all tested substances. Family composition Notes: Pt reported having 3 daughters and 2 step children. He stated that he had been for two years. Need for family Answers: No participation in patient's care Family psychiatric/substance abuse history Notes: None reported. Developmental history Notes: There are no previous [facility] records detailing developmental history. Pt currently non-cooperative, required ED medications, and is not a reliable historian currently. Abuse concerns Answers: None Marital status/children Notes: He had been for two years and that his left him on 07/19/17 and wanted a divorce because of his Adderall abuse. He has 3 daughters and 2 step children. Living situation Notes: Pt previously resided at home in [place] with his and children. He reported also having a [facility] in [facility]. Lately, pt has been staying at the [facility] where [employer] picked up pt today. Sexual history/orientation Notes: Not active. Heterosexual. Peer support/family strengths Notes: Pt denied any social support. Education level/history Notes: Pt reported that he attended some college at [employer] and wanted to be and alcohol counselor. Work history Notes: Pt is unemployed. Notes: None. Legal Notes: Pt has multiple arrests for theft, menacing, assault, many are related to alcohol use. Pt estimates he has spent 17.5 years of his life incarcerated. Currently not on parole or probation. Zoroastrianism/Spiritual Notes: Pt denied any druze or spiritual affiliation that would impact with treatment. Leisure Notes: Pt denied any leisure activities. Collateral Notes: Per prior [facility] records. TLC Evaluation - Mental Status Exam Appearance: Answers: Unclean Unkempt Disheveled Eye Contact: Answers: Avoiding Mood: Answers: Depressed Irritable Labile Affect: Answers: Angry Distracted Fearful Guarded Labile Suspicious Behavior: Answers: Uncooperative Menacing Resistive to Care Restless Sedated Suspicious Speech: Answers: Illogical Coherent Dramatic Loud Pressured Thought Process: Answers: Disorganized Disoriented Distracted Loose Associations Paranoid Insight: Answers: Fair Judgement: Answers: Poor Manic Signs/Symptoms Answers: Impulsivity Irritability Mood Swings Racing Thoughts Depression Answers: Difficulty Concentrating Signs/Symptoms: Diminished Interest Diminished Pleasure Psychomotor Agitation Sad Mood Hallucinations: Answers: Auditory Visual Delusions: Answers: Ideas of Reference Paranoid Ideation Persecution Current Stage of Change Answers: Precontemplation Pt reported to have Answers: No suicidal/self-injuring ideation/behavior? Pt reported to be making Answers: No suicidal/self-injuring threats? Pt reported to have Answers: Yes aggression/assault ideation/behavior? Pt reported to be making Answers: No aggression/assault threats? Pt exhibits inability to Answers: Yes care for self/grave disability? Ideation/behavior is Answers: Yes chronic? Patient has a specific Answers: No plan? Pt has access to means to Answers: No execute the plan? Ideation involves Answers: No serious/lethal intent? Ideation has Answers: Yes delusional/hallucinatory content? History of Answers: Yes suicidal/self-injuring ideation, behavior, or threats? History of serious Answers: No physical harm to self/others while in treatment setting? TLC Evaluation - Suicide/Homicide Risk Suicide Risk Factors: Answers: < 20 or > 40 Years of Age Agitation Alcohol/Heavy Drug Use Anhedonia Cluster "B" D/O or Traits Command Hallucinations Impulsivity Inadequate Social Support Lack of Zoroastrianism Support Lack of Social Support Lack/Loss of Employment Legal Difficulties Prior Suicide Attempt(s) Schizoaffective Disorder Self-Harm Behaviors Serious Health Issue, Pain Single Unstable Living Situation Homicide/violence risk Answers: Character Disorder Males factors: Dealing with Separation Cluster "B" D/O or Traits Command Hallucinations Paranoid Ideation Previous Hx of Violence Current Suicidal Answers: No Ideation? Current Suicidal Ideation Answers: No in the Past 48 Hours? Current Suicidal Ideation Answers: No in the Past Month? Current Suicidal Answers: No Ideation, Worst Ever? Suicide Internal Answers: None Protective Factors: Suicide External Answers: Positive Therapeutic Protective Factors: Relationships Ranking of patient's Answers: Low suicidal risk: Ranking of patient's Answers: Moderate homicidal risk: TLC Evaluation - Wrap-up AXIS I Diagnosis (include DSM-V and ICD-10 codes), must also be entered in [employer], which is the source of truth. Notes: Schizoaffective Disorder, Depressed, Chronic, with Acute Exacerbation PTSD; Cannabis Use Disorder, Severe; Amphetamine Use Disorder, Severe Pt refused/unable to complete BDI/BSS questionnaires. In consultation with [facility] ED physician, Xander Gutierrez MD and on-call ANP, Kyel Moore, both concurred that pt appears to meet 27-65 criteria requiring psychiatric hospitalization as pt appears to be at risk of harm to self/others/gravely disabled due to a mental illness condition. Pt was given (but declined to sign) the 3N prohibited belongings list while in the ED. Evaluation End Date and 10/26/2017 02:10 PM Time (HH:MM): Date Signed: 11/08/2017 10:06 AM Electronically Signed By:Cristiana White RN
== END 2017-10-29 20:02 | DRG 885 ==
LOC: BBEH 15:35
PROVIDERS: ADMIT Psychiatry & Neurology Psychiatry; ATTEND Psychiatry & Neurology Psychiatry
DX: F25.1 Schizoaffective disorder, depressive type (principal); T43.506A Underdosing of unspecified antipsychotics and neuroleptics, initial encounter; G89.4 Chronic pain syndrome; J45.909 Unspecified asthma, uncomplicated; E78.5 Hyperlipidemia, unspecified
CPT/HCPCS: 80305; G0480